=== PATIENT | male | born 1995 | race Caucasian/White ===

== ENCOUNTER 2020-02-27 16:31 | Outpatient (CLI) | payer OTHER ==
--- NOTE | 2020-02-27 17:03 | XRAY Report ---
PROCEDURE: Chest 3 View X-Ray INDICATIONS: CHEST PAIN AYTPICAL TECHNIQUE: 2 view(s) of the chest. COMPARISON: None. FINDINGS: Surgical changes and devices: None. Lungs and pleura: There is a mild left pneumothorax measuring 2.7 cm from the pleural surface. No mid line shift.. Mediastinum: Mediastinal contours are normal. Heart size is normal. Bones and chest wall: No suspicious bony abnormalities. Soft tissues appear unremarkable. IMPRESSION: Mild left pneumothorax without midline shift. Reviewed by: Es Dey MD on 02/27/2020 5:01 PM [facility] Approved by: Es Dey MD on 02/27/2020 5:01 PM [facility] Station ID: [id number]
== END 2020-02-27 16:32 | disposition home or self-care (01) ==
LOC: DI 16:31
PROVIDERS: ATTEND Family Medicine
DX: J93.9 Pneumothorax, unspecified (principal)
CPT/HCPCS: 71047

== ENCOUNTER 2020-02-28 07:36 | Inpatient (IN) | payer OTHER ==
[2020-02-28] MEDS ORDERED: LIDOCAINE 2%-EPI 1:100000 20 ML MDV SUBQ STA (07:54)
[2020-02-28] MEDS ORDERED: MORPHINE 2 MG/ML CARPUJECT IVP STA ×2 (08:20→08:55)
--- NOTE | 2020-02-28 08:23 | ED Physician Documentation ---
History of Present Illness - Stated complaint Stated Complaint: LEFT SIDED PAIN - Chief complaint Chief Complaint: Resp - History obtained from History obtained from: Patient, Family - History of Present Illness Timing: Other (3 months) Pain level max: 5 Pain level now: 4 - Additonal information Additional information: L sided chest pain x 3 months. Noted to have a L sided ptx on cxr last night. worse with movement and breathing. Better with rest. Patient has never had a ptx before. He does smoke cigarettes. Review of Systems Constitutional: denies: Fever, Chills Ears: denies: Ear pain Nose: denies: Rhinorrhea / runny nose, Congestion Throat: denies: Sore throat Respiratory: denies: Cough GI: denies: Nausea, Vomiting, Diarrhea Skin: denies: Rash Musculoskeletal: denies: Neck pain, Back pain Neurologic: denies: Headache PD PAST MEDICAL HISTORY - Past Medical History Past Medical History: No - Past Surgical History Past Surgical History: No - Present Medications Home Medications: Ambulatory Orders Medication Instructions Recorded Confirmed No Known Home Medications 02/28/20 02/28/20 - Allergies Allergies/Adverse Reactions: Allergies Allergy/AdvReac Type Severity Reaction Status Date / Time No Known Drug Allergies Allergy Verified 02/28/20 07:49 - Living Situation Living Situation: reports: With family Living Arrangement: reports: At home - Social History Does the pt smoke?: Yes Smoking Status: Current every day smoker Does the pt drink ETOH?: Yes - Family History Family history: reports: Non contributory PD ED PE NORMAL - Vitals Vital signs reviewed: Yes - General General: Alert and oriented X 3, No acute distress - HEENT HEENT: Moist mucous membranes - Neck Neck: Supple, no meningeal sign - Cardiac Cardiac: RRR - Respiratory Respiratory: No respiratory distress, Other (decreased BS on the L) - Abdomen Abdomen: Soft, Non tender, Non distended - Derm Derm: Warm and dry - Neuro Neuro: Alert and oriented X 3 - Psych Psych: Normal mood, Normal affect Results - Vitals Vitals: Vital Signs - 24 hr 02/28/20 02/28/20 02/28/20 07:46 08:33 09:25 Temperature 36.8 C Heart Rate 54 L 67 66 Respiratory 16 11 L 14 Rate Blood Pressure 114/53 L 120/74 110/68 O2 Saturation 100 98 100 02/28/20 10:00 Temperature Heart Rate 65 Respiratory 12 Rate Blood Pressure 112/69 O2 Saturation 98 Oxygen O2 Source Room air - Labs Labs: Laboratory Tests 02/28/20 02/28/20 08:02 08:02 WBC 5.4 RBC 4.77 Hgb 14.3 Hct 41.2 L MCV 86.4 MCH 30.0 MCHC 34.7 RDW 12.3 Plt Count 238 MPV 9.8 Neut # (Auto) 2.7 Lymph # (Auto) 2.0 [place] # (Auto) 0.5 Eos # (Auto) 0.2 Baso # (Auto) 0.0 Absolute Nucleated RBC 0.00 Nucleated RBC % 0.0 Sodium 139 Potassium 3.9 Chloride 103 Carbon Dioxide 26 Anion Gap 10.0 BUN 10 Creatinine 0.7 Estimated GFR (MDRD) 141 Glucose 95 Calcium 9.6 - Rads (name of study) cxr Radiology: Prelim report reviewed, EMP read contemporaneously, See rad report (L pneumothorax) post chest tube CXR Radiology: Prelim report reviewed, EMP read contemporaneously, See rad report (Status post left apical chest tube placement with near complete resolution of the left apical pneumothorax) Ct chest Radiology: Prelim report reviewed, EMP read contemporaneously, See rad report (Small left pneumothorax. Left pleural catheter in place. No acute airspace disease. ) Procedures - Chest Tube (location) left other other Chest tube preparation: Consent obtained, Time out completed Chest tube location: Left, Mid axillary line Chest tube anesthesia: Lidocaine (2% with epi) Chest tube size: 13 Chest tube return: Air Chest tube after care: Confirmed with xray, Pt tolerated well PD MEDICAL DECISION MAKING - ED course Complexity details: reviewed results, re-evaluated patient, considered differential, d/w patient, d/w family ED course: Anterior chest tube was placed. Patient tolerated well. Connected to suction. Decreased size of pneumothorax. CT of the chest was performed to evaluate for any structural lung disease. Pain well controlled with IV pain medications. Discussed the case with Dr. Bruno, general surgery who will place the patient in observation. This document was made in part using voice recognition software. While efforts are made to proofread this document, sound alike and grammatical errors may occur. Departure - Departure Disposition: ED Place in Observation Clinical Impression: Pneumothorax, left Condition: Stable
[2020-02-28 08:31] LABS: BASOPHILS % (AUTO) 0.6 %; EOSINOPHILS # (AUTO) 0.2 10^3/uL (0.0-0.7); EOSINOPHILS % (AUTO) 3.6 %; HGB - HEMOGLOBIN 14.3 g/dL (14.0-18.0); LYMPHOCYTES % (AUTO) 37.6 %; MEAN CORPUSCULAR HGB CONC 34.7 g/dL (32.0-36.0); MEAN CORPUSCULAR VOLUME 86.4 fL (80.0-94.0); MEAN PLATELET VOLUME 9.8 fL (7.4-11.4); MONOCYTES # (AUTO) 0.5 10^3/uL (0.0-1.0); MONOCYTES % (AUTO) 8.4 %; NEUTROPHILS # (AUTO) 2.7 10^3/uL (1.5-6.6); NEUTROPHILS % (AUTO) 49.6 %; PLT - PLATELET COUNT 238 10^3/uL (130-450); RED BLOOD COUNT 4.77 10^6/uL (4.70-6.10); RED CELL DISTRIBUTION WIDTH 12.3 % (12.0-15.0); WHITE BLOOD COUNT 5.4 x10^3/uL (4.8-10.8)
[2020-02-28 08:39] LABS: CALCIUM 9.6 mg/dL (8.5-10.3); CREATININE 0.7 mg/dL (0.6-1.2)
[2020-02-28] MEDS ORDERED: IOVERSOL 320 100 ML VIAL IVP ONE ×2 (08:56→09:28)
[2020-02-28] MEDS ORDERED: KETOROLAC 30 MG/ML VIAL IVP STA (10:08)
--- NOTE | 2020-02-28 10:09 | CT Report ---
PROCEDURE: CHEST W INDICATIONS: L sided pneumothorax CONTRAST: IV CONTRAST: Optiray 320 ml: 100 PO CONTRAST: *NO PO CONTRAST TECHNIQUE: After the administration of intravenous contrast, 5 mm thick sections acquired from the pulmonary api germain to the posterior costophrenic angles. 7 mm thick coronal MIP reformats were acquired. For radia tion dose reduction, the following was used: automated exposure control, adjustment of mA and/or kV according to patient size. COMPARISON: None. FINDINGS: Image quality: Excellent. Lungs and pleura: Left-sided pleural catheter is visualized and enters the pleural space between the anterior first and second ribs. The distal tip projects posteriorly over the left lung apex. There i s a small left pneumothorax which extends from the apex to the lung base. No acute air space opacitie s. No pleural effusions. Central and peripheral airways are patent and normal in caliber. Mediastinum: Heart size is normal. No pericardial effusion. No mediastinal or hilar adenopathy by size criteria. Thoracic aorta and central pulmonary arteries are normal in size. Esophagus is susan l in caliber. No hiatal hernia. Bones and chest wall: No suspicious bony lesions. No vertebral body compression fractures. No axil dolly or supraclavicular adenopathy by size criteria. Thyroid gland is unremarkable. Abdomen: Visualized upper abdominal solid organs appear normal. Upper abdominal bowel loops are nor mal in caliber. IMPRESSION: Small left pneumothorax. Left pleural catheter in place. No acute airspace disease. Reviewed by: Lonnie Prater MD on 02/28/2020 9:08 AM [facility] Approved by: Lonnie Prater MD on 02/28/2020 9:08 AM [facility] Station ID: [id number]
--- NOTE | 2020-02-28 10:09 | XRAY Report ---
PROCEDURE: Chest 1 View X-Ray INDICATIONS: L sided pneumothorax on cxr yesterday, worse today TECHNIQUE: One view of the chest was acquired. COMPARISON: 2 views of the chest dated 02/27/2020 FINDINGS: Surgical changes and devices: None. Lungs and pleura: Left apical pneumothorax is similar in size to the study dated 02/27/2020. No acute airspace opacities. No pleural effusion. Mediastinum: Mediastinal contours appear normal. Heart size is normal. Bones and chest wall: No suspicious bony lesions. Overlying soft tissues appear unremarkable. IMPRESSION: Stable left apical pneumothorax when compared with the study from 02/27/2020. Reviewed by: Akila Williamson MD on 02/28/2020 10:08 AM [facility] Approved by: Akila Williamson MD on 02/28/2020 10:08 AM [facility] Station ID: [id number]
--- NOTE | 2020-02-28 10:12 | XRAY Report ---
PROCEDURE: Chest 1 View X-Ray INDICATIONS: pneumothorax s/p chest tube TECHNIQUE: One view of the chest was acquired. COMPARISON: Single view the chest dated 02/27/2020 and 02/28/2020. FINDINGS: Surgical changes and devices: None. Lungs and pleura: Patient is status post left apical chest tube placement. There is near complete res olution of the left apical pneumothorax with only a trace pneumothorax noted at the apex. Mediastinum: Mediastinal contours appear normal. Heart size is normal. Bones and chest wall: No suspicious bony lesions. Overlying soft tissues appear unremarkable. IMPRESSION: Status post left apical chest tube placement with near complete resolution of the left apical pneumot horax. Reviewed by: Akila Williamson MD on 02/28/2020 10:11 AM PST Approved by: Akila Williamson MD on 02/28/2020 10:11 AM PST Station ID: [id number]
[2020-02-28] MEDS: ACETAMINOPHEN 325 MG TABLET PO SCH ×2 (11:23→17:33)
[2020-02-28] MEDS: ONDANSETRON 4 MG/2 ML VIAL IVP PRN (11:24)
[2020-02-28] MEDS: oxyCODONE 5 MG TABLET PO PRN (11:24)
[2020-02-28] MEDS: SODIUM CHLORIDE FLUSH 0.9% 10 ML SYRINGE IVP PRN (11:24)
[2020-02-28] MEDS: PANTOPRAZOLE 40 MG TABLET PO SCH (11:24)
--- NOTE | 2020-02-28 13:46 | PHARMACY PROGRESS NOTE ---
- Best Possible Medication History Admit Date and Time: 02/28/20 1012 Processed by: Nursing Medication History completed: Yes As the person ultimately responsible for medication therapy, providers are able to order a medication from an existing home medication list in [facility] via the "Reconcile Routine" prior to Confirmation of that medication by retail support manager. Such practice is discouraged except when the physician, in their clinical judgment, deems that a medical need exists for a medication without regard to previous use.
--- NOTE | 2020-02-28 14:59 | SURGERY HX AND PHYSICAL(T) ---
Surgical History & Physical - Chief Complaint/HPI Chief Complaint: Right chest pain History of Present Illness: L sided chest pain x 3 months. Noted to have a L sided ptx on cxr last night. worse with movement and breathing. Better with rest. Patient has never had a ptx before. He does smoke cigarettes. More uncomfortable over the evening. Presented to the ED and anterior tube placed there. Admitted now for observation and tube management. - PMH/PSH/Social Hx Does the pt have a hx of MRSA?: No Neurological History: Headaches Cardiovascular: None Respiratory: None Skin: None Endocrine/Autoimmune: None Gastrointestinal: None Urinary: None Musculoskeletal: None Blood Disorders: None Psychiatric: Depression Smoking Status: Current every day smoker Does the pt drink ETOH?: Yes - Home Meds and Allergies Home Medications: No Known Home Medications 02/28/20 Allergies/Adverse Reactions: Allergies Allergy/AdvReac Type Severity Reaction Status Date / Time No Known Drug Allergies Allergy Verified 02/28/20 07:49 - Vital Signs Heart Rate: 68 Blood Pressure: 105/69 Temperature: 36.9 C Respiratory Rate: 12 O2 Saturation: 100 Weight (kg): 59.5 kg Height: 1.78 m - Physical Exam General Appearance: positive: No acute distress, Alert Eyes Bilatera: positive: Normal inspection, PERRL, EOMI ENT: positive: ENT inspection nml, Pharynx nml, No signs of dehydration Neck: positive: Nml inspection, No JVD, Trachea midline Respiratory: positive: No respiratory distress, Breath sounds nml, Other (Anterior tube in the left chest to 20 cm negative pressure) Peripheral Pulses: positive: 2+ Abdomen: positive: Non-tender, Nml bowel sounds Neurologic/Psychiatric: positive: Oriented x3 - Patient Review Patient Review: Problems were reviewed with the patient during this visit. Medications were reviewed with the patient during this visit. Allergies were reviewed this patient during this visit. Pertinent Tests Reviewed: All pertitent test for this patient were reviewed. - Assessment & Plan Assessment and Plan: Spontaneous pneumothorax in the setting of a tall skinny and otherwise healthy young man. Dr. Flood is already placed the tube and relieve the immediate p roblem. We will keep him in the hospital for observation and supportive care. Repeat the chest x-ray in the morning and likely remove the tube in the morning. CT scan is reassuring and does not show any extensive bleb disease.
[2020-02-28] MEDS: KETOROLAC 30 MG/ML VIAL IVP SCH (17:33)
[2020-02-28] MEDS: SODIUM CHLORIDE FLUSH 0.9% 10 ML SYRINGE IVP SCH (17:33)
[2020-02-29] MEDS: SODIUM CHLORIDE FLUSH 0.9% 10 ML SYRINGE IVP SCH ×4 (00:18→23:50)
[2020-02-29] MEDS: ACETAMINOPHEN 325 MG TABLET PO SCH ×5 (00:18→23:50)
[2020-02-29] MEDS: KETOROLAC 30 MG/ML VIAL IVP SCH ×5 (00:18→23:50)
[2020-02-29] MEDS: PANTOPRAZOLE 40 MG TABLET PO SCH (07:22)
[2020-02-29] MEDS: ENOXAPARIN 40 MG/0.4 ML SYRINGE SUBQ SCH (09:07)
[2020-02-29] MEDS: SODIUM CHLORIDE FLUSH 0.9% 10 ML SYRINGE IVP PRN ×2 (09:09→11:35)
--- NOTE | 2020-02-29 10:15 | PROVIDER PROGRESS NOTE ---
Subjective - General Admit Date: 02/28/20 Procedure Date: 02/27/20 Post Op Days: 2 Procedure Performed: Anterior chest tube placment - Review of Systems Wound/Incisions: negative: Drainage General: positive: No symptoms HEENT: positive: No symptoms Pulmonary: negative: Shortness of breath, Pleuritic chest pain, Cough, Sputum Cardiovascular: positive: No symptoms. negative: Chest pain Gastrointestinal: positive: No symptoms Genitourinary: positive: No symptoms Musculoskeletal: positive: No symptoms Skin: positive: No symptoms All Other Systems: positive: Reviewed and negative Objective - Patient Data Reviewed Vital Signs: Yes Vital Signs: Vital Signs x48h Temp Pulse Resp BP Pulse Ox 02/29/20 08:00 36.6 C 63 18 108/52 L 100 Weight: Weight 02/27/20 02/28/20 02/29/20 23:59 23:59 23:59 Weight (kg) 59.5 kg Intake & Output: Intake and Output Totals x24h 02/27/20 02/28/20 02/29/20 23:59 23:59 23:59 Intake Total 730 Output Total 200 850 Balance 530 -850 - Lab Results Lab Results: 02/28/20 08:02 02/28/20 08:02 Other Lab Results: Lab Results x24hrs 02/28/20 Range/Units 10:20 SARS-CoV-2 (PCR) NOT DETECTED - Imaging Results Radiology Imaging: positive: Discussed with rads Imaging Results Comments: Large recurrent pneumothorax on the left with tube still in place - Current Medications Current Medications: Current Medications Generic Name Dose Route Start Last Admin Trade Name Freq PRN Reason Stop Dose Admin Acetaminophen 650 mg 02/28/20 12:00 02/29/20 06:42 Tylenol PO 650 mg Q6HR EVELYN Administration Enoxaparin Sodium 40 mg 02/29/20 09:00 02/29/20 09:07 Lovenox SUBQ Not Given DAILY EVELYN Ketorolac Tromethamine 30 mg 02/28/20 17:00 02/29/20 06:43 Toradol Inj (30mg) IVP 03/04/20 09:59 30 mg Q6HR EVELYN Administration Ondansetron HCl 4 mg 02/28/20 10:12 02/28/20 11:24 Zofran Inj IVP 4 mg Q6HR PRN Administration Nausea / Vomiting Oxycodone HCl 5 mg 02/28/20 10:12 02/28/20 11:24 Roxicodone PO 5 mg Q4HR PRN Administration Pain 5 to 7 Pantoprazole Sodium 40 mg 02/28/20 12:00 02/29/20 07:22 Protonix PO 40 mg QDAC EVELYN Administration Sodium Chloride 10 ml 02/28/20 10:12 02/29/20 09:09 Normal Saline Flush 0.9% IVP 10 ml PRN PRN Administration NEEDED PER PROVIDER ORDERS Sodium Chloride 10 ml 02/28/20 17:00 02/29/20 06:43 Normal Saline Flush 0.9% IVP 10 ml 0100,0900,1700 EVELYN Administration - Physical Exam General Appearance: positive: No acute distress Eyes Bilateral: positive: Normal inspection ENT: positive: ENT inspection nml Neck: positive: Nml inspection Respiratory: positive: Other (Chest tube back to suction with evacuation of a large amount of air. Afterward, only intermittent air leak.) Cardiovascular: positive: Regular rate & rhythm, No murmur Abdomen: positive: Non-tender Rectal: positive: Non-tender Skin: positive: Color nml Neurologic/Psychiatric: positive: Oriented x3 ABX Reporting Has patient been on IV antibiotics over the past 48 hours?: No Impression/Plan - Problem List Problem List: 1. Returned chest tube to suction today. 2. We will leave the tube on suction for at least 24 hours or until the intermittent leak stops. 24 hours on water seal to follow that and then finally remove the tube if all goes as planned. 3. As per the above, discharge in 2-3 days if all goes well. Will change to i npatient status.
--- NOTE | 2020-02-29 10:20 | XRAY Report ---
PROCEDURE: Chest 2 View X-Ray INDICATIONS: Pneumothorax TECHNIQUE: 2 view(s) of the chest. COMPARISON: Multiple chest radiographs dated 02/28/[address] chest dated 02/28/2020. FINDINGS: Surgical changes and devices: Stable positioning of left apical chest tube/pleural catheter. Lungs and pleura: There is now a [id number] left pneumothorax which appears larger than the chest radiograph taken prior to placement of chest tube. Likely small left pleural effusion. Right l karen is clear. Mediastinum: Mediastinal contours are normal. Heart size is normal. Bones and chest wall: No suspicious bony abnormalities. Soft tissues appear unremarkable. IMPRESSION: A [id number] left pneumothorax which appears slightly larger than comparison radiograph obt ained prior to placement of left-sided chest tube. Small left pleural effusion. Right lung is clear. Findings were discussed with Dr. Bruno at 10:18 PST. Reviewed by: Lonnie Prater MD on 02/29/2020 9:19 AM [facility] Approved by: Lonnie Prater MD on 02/29/2020 9:19 AM [facility] Station ID: [id number]
[2020-02-29] MEDS: oxyCODONE 5 MG TABLET PO PRN (10:54)
[2020-03-01] MEDS: ACETAMINOPHEN 325 MG TABLET PO SCH ×3 (06:04→18:29)
[2020-03-01] MEDS: PANTOPRAZOLE 40 MG TABLET PO SCH (06:05)
[2020-03-01] MEDS: KETOROLAC 30 MG/ML VIAL IVP SCH ×3 (06:05→18:29)
--- NOTE | 2020-03-01 08:45 | XRAY Report ---
PROCEDURE: Chest 1 View X-Ray INDICATIONS: left spontaneous pneumothorax TECHNIQUE: One view of the chest was acquired. COMPARISON: All recent prior chest plain films and chest CT scanning. FINDINGS: Surgical changes and devices: None. Lungs and pleura: No pleural effusions but the left-sided pneumothorax has redeveloped measuring up to 3.5 cm in thickness, tapering towards the lung base. Lungs are clear. Mediastinum: Mediastinal contours appear normal. Heart size is normal. Bones and chest wall: No suspicious bony lesions. Overlying soft tissues appear unremarkable. IMPRESSION: Recurrent left-sided pneumothorax measuring up to 3.5 cm with pneumothorax evacuation device superimp osed on the left apex. Reviewed by: ePdro Quinteros MD on 03/01/2020 8:44 AM [facility] Approved by: Pedro Quinteros MD on 03/01/2020 8:44 AM [facility] Station ID: [id number]
[2020-03-01] MEDS: ENOXAPARIN 40 MG/0.4 ML SYRINGE SUBQ SCH (09:20)
[2020-03-01] MEDS: SODIUM CHLORIDE FLUSH 0.9% 10 ML SYRINGE IVP SCH ×2 (09:20→18:30)
--- NOTE | 2020-03-01 15:07 | PROVIDER PROGRESS NOTE ---
Subjective - General Admit Date: 02/29/20 Procedure Date: 02/27/20 Post Op Days: 3 Procedure Performed: Anterior chest tube placment - Review of Systems Wound/Incisions: negative: Drainage General: positive: No symptoms HEENT: positive: No symptoms Pulmonary: negative: Shortness of breath, Pleuritic chest pain, Cough, Sputum Cardiovascular: positive: No symptoms. negative: Chest pain Gastrointestinal: positive: No symptoms Genitourinary: positive: No symptoms Musculoskeletal: positive: No symptoms Skin: positive: No symptoms All Other Systems: positive: Reviewed and negative Objective - Patient Data Vital Signs: Vital Signs x48h Temp Pulse Resp BP Pulse Ox 03/01/20 08:05 36.9 C 56 L 16 110/62 100 Weight: Weight 02/28/20 02/29/20 03/01/20 23:59 23:59 23:59 Weight (kg) 59.5 kg Intake & Output: Intake and Output Totals x24h 02/28/20 02/29/20 03/01/20 23:59 23:59 23:59 Intake Total 807 482 1832 Output Total 200 2175 1200 Balance 530 -1195 200 - Lab Results Lab Results: 02/28/20 08:02 02/28/20 08:02 - Current Medications Current Medications: Current Medications Generic Name Dose Route Start Last Admin Trade Name Freq PRN Reason Stop Dose Admin Acetaminophen 650 mg 02/28/20 12:00 03/01/20 12:15 Tylenol PO 650 mg Q6HR EVELYN Administration Enoxaparin Sodium 40 mg 02/29/20 09:00 03/01/20 09:20 Lovenox SUBQ Not Given DAILY EVELYN Ketorolac Tromethamine 30 mg 02/28/20 17:00 03/01/20 12:15 Toradol Inj (30mg) IVP 03/04/20 09:59 30 mg Q6HR EVELYN Administration Ondansetron HCl 4 mg 02/28/20 10:12 02/28/20 11:24 Zofran Inj IVP 4 mg Q6HR PRN Administration Nausea / Vomiting Oxycodone HCl 5 mg 02/28/20 10:12 02/29/20 10:54 Roxicodone PO 5 mg Q4HR PRN Administration Pain 5 to 7 Pantoprazole Sodium 40 mg 02/28/20 12:00 03/01/20 06:05 Protonix PO 40 mg QDAC EVELYN Administration Sodium Chloride 10 ml 02/28/20 10:12 02/29/20 11:35 Normal Saline Flush 0.9% IVP 10 ml PRN PRN Administration NEEDED PER PROVIDER ORDERS Sodium Chloride 10 ml 02/28/20 17:00 03/01/20 09:20 Normal Saline Flush 0.9% IVP 10 ml 0100,0900,1700 EVELYN Administration - Physical Exam General Appearance: positive: No acute distress Eyes Bilateral: positive: Normal inspection ENT: positive: ENT inspection nml Neck: positive: Nml inspection Respiratory: positive: No respiratory distress, Breath sounds nml Cardiovascular: positive: Regular rate & rhythm Comments/Other: Lung fully inflated on this mornings CXR. He still has an air leak with coughing. No chest crepitance Impression/Plan - Problem List Problem List: Left spontaneous pneumothorax. Lung is inflated but with intermittent air leak. Will leave the tube in place and on suction over night. Recheck in the AM for continued intermittent leak.
[2020-03-02] MEDS: KETOROLAC 30 MG/ML VIAL IVP SCH ×5 (00:53→23:53)
[2020-03-02] MEDS: ACETAMINOPHEN 325 MG TABLET PO SCH ×5 (00:53→23:52)
[2020-03-02] MEDS: oxyCODONE 5 MG TABLET PO PRN ×2 (01:16→08:28)
--- NOTE | 2020-03-02 06:05 | PROVIDER PROGRESS NOTE ---
Subjective - Prog Note Date Prog Note Date: 03/02/20 Prog Note Time: 06:03 - Subjective Pt reports feeling: No change Subjective: Pain is under control. Denies any shortness of breath. Anxious to go home Objective - Vital Signs/Intake & Output Reviewed Vital Signs: Yes Vital Signs: Vital Signs x48h Temp Pulse Resp BP Pulse Ox 03/02/20 00:00 36.4 C L 65 16 121/75 100 Intake & Output: Intake & Output 02/28/20 02/29/20 03/01/20 03/02/20 23:59 23:59 23:59 23:59 Intake Total 351 488 5695 Output Total 200 2175 1600 400 Balance 530 -1994 70 -400 - Objective General Appearance: positive: No acute distress Eyes Bilateral: positive: Normal inspection Neck: positive: Nml inspection, Trachea midline Respiratory: positive: No respiratory distress, Breath sounds nml Cardiovascular: positive: Regular rate & rhythm, No murmur Neurologic/Psychiatric: positive: Oriented x3 - Lab Results Fish Bones: 02/28/20 08:02 02/28/20 08:02 - Diagnostic Imaging Diagnostic Imaging Comments: Pending - Other Results/Comments Other Results/Comments: Occasional bubble with deep inspiration and cough. Much improved from yesterday Assessment/Plan - Problem List (1) Pneumothorax, left Impression: Bubbles decreasing but will need to continue on suction another 24 hours. Check CXR this morning to be sure lung remains fully inflated.
[2020-03-02] MEDS: PANTOPRAZOLE 40 MG TABLET PO SCH (06:40)
[2020-03-02] MEDS: SODIUM CHLORIDE FLUSH 0.9% 10 ML SYRINGE IVP SCH ×4 (06:41→23:53)
[2020-03-02] MEDS: ONDANSETRON 4 MG/2 ML VIAL IVP PRN (08:28)
[2020-03-02] MEDS: polyethylene glycoL 3350 17 GM PACKET PO SCH (08:28)
[2020-03-02] MEDS: ENOXAPARIN 40 MG/0.4 ML SYRINGE SUBQ SCH (08:28)
--- NOTE | 2020-03-02 08:32 | XRAY Report ---
PROCEDURE: Chest 1 View X-Ray INDICATIONS: Pneumothorax TECHNIQUE: One view of the chest was acquired. COMPARISON: 03/01/2028 chest radiograph FINDINGS: Surgical changes and devices: Left chest tube and pneumothorax evacuation device are unchanged. Lungs and pleura: Trace left apical pneumothorax measuring only 2 to 3 mm adjacent to the chest tube. Pleural spaces are otherwise clear. The lungs are unremarkable Mediastinum: Mediastinal contours appear normal. Heart size is normal. Bones and chest wall: No suspicious bony lesions. Overlying soft tissues appear unremarkable. IMPRESSION: Trace left apical pneumothorax measuring approximately 3 mm near the chest tube. Reviewed by: Solo Siegel MD on 03/02/2020 8:31 AM PST Approved by: Solo Siegel MD on 03/02/2020 8:31 AM PST Station ID: [id number]
[2020-03-02] MEDS: NICOTINE 14 MG PATCH TOP SCH (10:26)
[2020-03-02] MEDS: SODIUM CHLORIDE FLUSH 0.9% 10 ML SYRINGE IVP PRN (11:57)
[2020-03-03] MEDS: ACETAMINOPHEN 325 MG TABLET PO SCH ×3 (05:48→18:53)
[2020-03-03] MEDS: SODIUM CHLORIDE FLUSH 0.9% 10 ML SYRINGE IVP SCH ×3 (05:48→15:49)
[2020-03-03] MEDS: KETOROLAC 30 MG/ML VIAL IVP SCH ×3 (05:50→18:54)
[2020-03-03] MEDS: PANTOPRAZOLE 40 MG TABLET PO SCH (05:50)
[2020-03-03] MEDS: DOCUSATE SODIUM 250 MG CAPSULE PO SCH (08:49)
[2020-03-03] MEDS: NICOTINE 14 MG PATCH TOP SCH (08:49)
[2020-03-03] MEDS: SENNA 8.6 MG TABLET PO SCH (08:52)
[2020-03-03] MEDS: polyethylene glycoL 3350 17 GM PACKET PO SCH ×2 (08:52→11:23)
[2020-03-03] MEDS: ENOXAPARIN 40 MG/0.4 ML SYRINGE SUBQ SCH (08:52)
[2020-03-03] MEDS ORDERED: ZINC OXIDE 20% OINT 30 GM TUBE TOP PRN (09:28)
[2020-03-03] MEDS ORDERED: MIN OIL/DIMETHICON/COCONUT OIL 92 GM TUBE TOP PRN (09:28)
[2020-03-03] MEDS ORDERED: GLYCERIN ADULT SUPP PR ONE (09:28)
[2020-03-03] MEDS: oxyCODONE 5 MG TABLET PO PRN ×2 (11:25→22:33)
[2020-03-03] MEDS: LORazepam 2 MG/ML VIAL IVP PRN (15:48)
[2020-03-03] MEDS ORDERED: LIDOCAINE 1%-EPI 1:100000 20 ML MDV ONE (16:12)
[2020-03-03] MEDS: HYDROmorphone 0.5 MG/0.5 ML SYRINGE IVP PRN (16:32)
--- NOTE | 2020-03-03 16:58 | XRAY Report ---
PROCEDURE: Chest 1 View X-Ray INDICATIONS: Recurrent left pneumothorax TECHNIQUE: One view of the chest was acquired. COMPARISON: Chest x-ray 03/03/2020 FINDINGS: Surgical changes and devices: Interval placement of left-sided chest tube. Lungs and pleura: Minimal residual apical left pneumothorax. Mediastinum: Mediastinal contours appear normal. Heart size is normal. Bones and chest wall: No suspicious bony lesions. Overlying soft tissues appear unremarkable. IMPRESSION: Interval chest tube placement with minimal residual apical left pneumothorax. Reviewed by: Es Dey MD on 03/03/2020 4:57 PM PST Approved by: Es Dye MD on 03/03/2020 4:57 PM PST Station ID: [id number]
[2020-03-03] MEDS ORDERED: BISACODYL 10 MG SUPP PR SCH (17:00)
--- NOTE | 2020-03-03 17:03 | PROVIDER PROGRESS NOTE ---
Subjective - General Admit Date: 02/29/20 Procedure Date: 02/27/20 Post Op Days: 5 Procedure Performed: Anterior chest tube placment - Review of Systems Wound/Incisions: positive: Other (Large air leak with each deep breath). negative: Drainage General: positive: No symptoms HEENT: positive: No symptoms Pulmonary: negative: Shortness of breath, Pleuritic chest pain, Cough, Sputum Cardiovascular: positive: No symptoms. negative: Chest pain Gastrointestinal: positive: No symptoms Genitourinary: positive: No symptoms Musculoskeletal: positive: No symptoms Skin: positive: No symptoms All Other Systems: positive: Reviewed and negative - Other Other Information/Narrative: W attempted to place the tube to water seal. Within 30 minutes Terry reports chest pain and shortness of breath. The tube was placed back to suction with resolution of symptoms. CXR while the tube was on water seal reveals a large recurrent pneumothorax. Terry is also complaining of constipation Objective - Patient Data Vital Signs: Vital Signs x48h Temp Pulse Resp BP Pulse Ox 03/03/20 16:53 36.3 C L 74 16 116/57 L 97 03/03/20 16:00 36.4 C L 60 16 105/55 L 98 03/03/20 11:12 36.8 C 94 19 134/74 H 100 Intake & Output: Intake and Output Totals x24h 03/01/20 03/02/20 03/03/20 23:59 23:59 23:59 Intake Total 1670 1520 Output Total 1600 2812 975 Balance 70 -1292 -975 - Lab Results Lab Results: 02/28/20 08:02 02/28/20 08:02 - Current Medications Current Medications: Current Medications Generic Name Dose Route Start Last Admin Trade Name Darinq PRN Reason Stop Dose Admin Acetaminophen 650 mg 02/28/20 12:00 03/03/20 11:24 Tylenol PO 650 mg Q6HR EVELYN Administration Docusate Sodium 250 - 500 mg 03/03/20 09:00 03/03/20 08:49 Colace 250mg Capsule PO 250 mg DAILY EVELYN Administration Enoxaparin Sodium 40 mg 02/29/20 09:00 03/03/20 08:52 Lovenox SUBQ Not Given DAILY EVELYN Hydromorphone HCl 0.5 mg 02/28/20 10:22 03/03/20 16:32 Dilaudid Inj Syringe IVP 0.5 mg Q30M PRN Administration Breakthrough Pain Ketorolac Tromethamine 30 mg 02/28/20 17:00 03/03/20 11:32 Toradol Inj (30mg) IVP 03/04/20 09:59 30 mg Q6HR EVELYN Administration Lorazepam 0.5 mg 03/03/20 12:16 03/03/20 15:48 Ativan Inj (Vial) IVP 0.5 mg Q2H PRN Administration Anxiety Nicotine 1 patch 03/02/20 10:00 03/03/20 08:49 Nicoderm TOP 1 patch DAILY EVELYN Administration Ondansetron HCl 4 mg 02/28/20 10:12 03/02/20 08:28 Zofran Inj IVP 4 mg Q6HR PRN Administration Nausea / Vomiting Oxycodone HCl 5 mg 02/28/20 10:12 03/03/20 11:25 Roxicodone PO 5 mg Q4HR PRN Administration Pain 5 to 7 Pantoprazole Sodium 40 mg 02/28/20 12:00 03/03/20 05:50 Protonix PO 40 mg QDAC EVELYN Administration Polyethylene Glycol 17 gm 03/02/20 09:00 03/03/20 11:23 Miralax PO 17 gm DAILY EVELYN Administration Senna 8.6 - 17.2 mg 03/03/20 09:00 03/03/20 08:52 Senokot PO Not Given DAILY EVELYN Sodium Chloride 10 ml 02/28/20 10:12 03/02/20 11:57 Normal Saline Flush 0.9% IVP 10 ml PRN PRN Administration NEEDED PER PROVIDER ORDERS Sodium Chloride 10 ml 02/28/20 17:00 03/03/20 15:49 Normal Saline Flush 0.9% IVP 10 ml 0100,0900,1700 EVELYN Administration - Physical Exam Comments/Other: See above Impression/Plan - Problem List Problem List: Recurrent pneumothorax. I spoke with Dr. Syeda Willis per telephone. I believe we need to remove the anterior tube and place a small lateral tube. This may allow the defect to seal. If this fails, we'll consider transfer for thoracoscopy. I discussed all of this with Terry and though he if very anxious about the process, he has expressed an understanding and a willingness to have the tube replaced.
[2020-03-03] MEDS: ONDANSETRON 4 MG/2 ML VIAL IVP PRN (17:13)
--- NOTE | 2020-03-03 17:20 | XRAY Report ---
PROCEDURE: Chest 2 View X-Ray INDICATIONS: left spontaneous pneumothorax TECHNIQUE: 2 view(s) of the chest. COMPARISON: None. FINDINGS: Surgical changes and devices: Percutaneous pneumothorax evacuation device present over the left apex. Lungs and pleura: No pleural effusions but the left-sided pneumothorax now measures 2.9 cm at the ap ex, 2.5 cm at the upper outer left upper lobe and tapers to 1.3 cm overlying the lower scapula area. Lungs are clear. Mediastinum: Mediastinal contours are normal. Heart size is normal. Bones and chest wall: No suspicious bony abnormalities. Soft tissues appear unremarkable. IMPRESSION: Recurrent/residual pneumothorax on the left measuring up to 2.9 cm AP at the apex and ta pering more inferiorly to 1.3 cm. Pleur-evac remains in normal position. Reviewed by: Pedro Quinteros MD on 03/03/2020 5:18 PM [facility] Approved by: Pedro Quinteros MD on 03/03/2020 5:18 PM [facility] Station ID: [id number]
--- NOTE | 2020-03-03 17:21 | POST OP PROGRESS NOTE ---
Subjective - General Admit Date: 02/29/20 Procedure Date: 02/27/20 Post Op Days: 5 Procedure Performed: Anterior chest tube placment - Review of Systems Wound/Incisions: positive: Other (Large air leak with each deep breath). negative: Drainage General: positive: No symptoms HEENT: positive: No symptoms Pulmonary: negative: Shortness of breath, Pleuritic chest pain, Cough, Sputum Cardiovascular: positive: No symptoms. negative: Chest pain Gastrointestinal: positive: No symptoms Genitourinary: positive: No symptoms Musculoskeletal: positive: No symptoms Skin: positive: No symptoms All Other Systems: positive: Reviewed and negative - Other Other Information/Narrative: After obtaining informed consent, the patient was placed in the sitting position in his bed. The left chest was prepped and draped in the standard surgical fashion. 10 cc of 1% lidocaine with epinephrine was used to anesthetize the lateral chest wall at approximately the seventh rib. A small michele was created in the skin and then a 13 [place] chest tube placed through this opening and into the chest.The tube was held into place with tape and dressed appropriately. The existing chest tube anteriorly was removed and a dressing applied to the wound. Patient tolerated the procedure very well. Postop chest x-ray showed the lung to be fully inflated.
[2020-03-04] MEDS: ACETAMINOPHEN 325 MG TABLET PO SCH ×5 (00:07→23:52)
[2020-03-04] MEDS: SODIUM CHLORIDE FLUSH 0.9% 10 ML SYRINGE IVP SCH ×3 (00:07→05:47)
[2020-03-04] MEDS: KETOROLAC 30 MG/ML VIAL IVP SCH ×2 (00:07→05:46)
[2020-03-04] MEDS: LORazepam 2 MG/ML VIAL IVP PRN (00:32)
[2020-03-04] MEDS: PANTOPRAZOLE 40 MG TABLET PO SCH (05:47)
[2020-03-04] MEDS: LACTULOSE 10 GM /15 ML UDC PO SCH (09:09)
[2020-03-04] MEDS: ENOXAPARIN 40 MG/0.4 ML SYRINGE SUBQ SCH (09:09)
[2020-03-04] MEDS: NICOTINE 14 MG PATCH TOP SCH (09:47)
[2020-03-04] MEDS: DOCUSATE SODIUM 250 MG CAPSULE PO SCH (09:47)
[2020-03-04] MEDS: polyethylene glycoL 3350 17 GM PACKET PO SCH (09:48)
[2020-03-04] MEDS: SENNA 8.6 MG TABLET PO SCH (09:48)
[2020-03-04] MEDS: oxyCODONE 5 MG TABLET PO PRN (09:48)
[2020-03-04] MEDS: ONDANSETRON 4 MG/2 ML VIAL IVP PRN (09:53)
--- NOTE | 2020-03-04 12:05 | XRAY Report ---
PROCEDURE: Chest 1 View X-Ray INDICATIONS: Recurrent left pneumothorax TECHNIQUE: One view of the chest was acquired. COMPARISON: 03/03/2020 FINDINGS: Surgical changes and devices: Left-sided chest tube is again seen.. Lungs and pleura: There is no focal infiltrate or pleural effusion. Tiny residual left apical pneumot horax is again seen and not significantly changed in size from previous day. Mediastinum: Mediastinal contours appear normal. Heart size is normal. Bones and chest wall: No suspicious bony lesions. Overlying soft tissues appear unremarkable. IMPRESSION: Stable appearing tiny residual left apical pneumothorax. Reviewed by: Benja Ramírez MD on 03/04/2020 11:03 AM [facility] Approved by: Benja Ramírez MD on 03/04/2020 11:03 AM [facility] Station ID: [id number]
--- NOTE | 2020-03-04 16:14 | PROVIDER PROGRESS NOTE ---
Subjective - General Admit Date: 02/29/20 Procedure Date: 02/27/20 Post Op Days: 6 Procedure Performed: Anterior chest tube placment - Review of Systems Wound/Incisions: positive: Other (Large air leak with each deep breath). negative: Drainage General: positive: No symptoms HEENT: positive: No symptoms Pulmonary: negative: Shortness of breath, Pleuritic chest pain, Cough, Sputum Cardiovascular: positive: No symptoms. negative: Chest pain Gastrointestinal: positive: No symptoms Genitourinary: positive: No symptoms Musculoskeletal: positive: No symptoms Skin: positive: No symptoms All Other Systems: positive: Reviewed and negative - Other Other Information/Narrative: Post op day 1 after lateral chest tube placement and removal of the anterior tube. The tube developed a leak in the connection last evening. Replaced connectors and tubing and able to fix the leak. In the sitting or supine position, there is no air leak. Intermittent leak especially when lying on the right side. No pain as long as the chest tube is on suction. Objective - Patient Data Vital Signs: Vital Signs x48h Temp Pulse Resp BP Pulse Ox 03/04/20 15:56 37.0 C 66 16 120/63 99 03/04/20 13:38 37.1 C 65 16 115/67 99 Intake & Output: Intake and Output Totals x24h 03/02/20 03/03/20 03/04/20 23:59 23:59 23:59 Intake Total 1520 310 420 Output Total 2812 975 20 Balance -1292 -665 400 - Lab Results Lab Results: 02/28/20 08:02 02/28/20 08:02 - Current Medications Current Medications: Current Medications Generic Name Dose Route Start Last Admin Trade Name Darinq PRN Reason Stop Dose Admin Acetaminophen 650 mg 02/28/20 12:00 03/04/20 13:27 Tylenol PO 650 mg Q6HR EVELYN Administration Docusate Sodium 250 - 500 mg 03/03/20 09:00 03/04/20 09:47 Colace 250mg Capsule PO 500 mg DAILY EVELYN Administration Enoxaparin Sodium 40 mg 02/29/20 09:00 03/04/20 09:09 Lovenox SUBQ Not Given DAILY EVELYN Hydromorphone HCl 0.5 mg 02/28/20 10:22 03/03/20 16:32 Dilaudid Inj Syringe IVP 0.5 mg Q30M PRN Administration Breakthrough Pain Lactulose 10 gm 03/04/20 09:00 03/04/20 09:09 Enulose PO Not Given DAILY EVELYN Lorazepam 0.5 mg 03/03/20 12:16 03/04/20 00:32 Ativan Inj (Vial) IVP 0.5 mg Q2H PRN Administration Anxiety Nicotine 1 patch 03/02/20 10:00 03/04/20 09:47 Nicoderm TOP 1 patch DAILY EVELYN Administration Ondansetron HCl 4 mg 02/28/20 10:12 03/04/20 09:53 Zofran Inj IVP 4 mg Q6HR PRN Administration Nausea / Vomiting Oxycodone HCl 5 mg 02/28/20 10:12 03/04/20 09:48 Roxicodone PO 5 mg Q4HR PRN Administration Pain 5 to 7 Pantoprazole Sodium 40 mg 02/28/20 12:00 03/04/20 05:47 Protonix PO 40 mg QDAC EVELYN Administration Polyethylene Glycol 17 gm 03/02/20 09:00 03/04/20 09:48 Miralax PO 17 gm DAILY EVELYN Administration Senna 8.6 - 17.2 mg 03/03/20 09:00 03/04/20 09:48 Senokot PO 8.6 mg DAILY EVELYN Administration Sodium Chloride 10 ml 02/28/20 10:12 03/02/20 11:57 Normal Saline Flush 0.9% IVP 10 ml PRN PRN Administration NEEDED PER PROVIDER ORDERS Sodium Chloride 10 ml 02/28/20 17:00 03/04/20 05:47 Normal Saline Flush 0.9% IVP 10 ml 0100,0900,1700 EVELYN Administration ABX Reporting Has patient been on IV antibiotics over the past 48 hours?: No Impression/Plan - Problem List Problem List: Intermittent air leak after spontaneous pneumothorax. Spoke with Dr. Willis yesterday and replaced anterior tube with lateral tube. Will give it over night to seal. Will need to discuss again or even consider transfer if it continues to leak. May need thoracoscopy.
[2020-03-05] MEDS: HYDROmorphone 0.5 MG/0.5 ML SYRINGE IVP PRN ×2 (01:43→02:50)
[2020-03-05] MEDS: LORazepam 2 MG/ML VIAL IVP PRN (02:50)
[2020-03-05] MEDS: oxyCODONE 5 MG TABLET PO PRN ×2 (02:50→13:09)
[2020-03-05] MEDS: PANTOPRAZOLE 40 MG TABLET PO SCH (05:50)
[2020-03-05] MEDS: ACETAMINOPHEN 325 MG TABLET PO SCH ×2 (05:50→12:10)
[2020-03-05] MEDS: ENOXAPARIN 40 MG/0.4 ML SYRINGE SUBQ SCH (09:30)
[2020-03-05] MEDS: polyethylene glycoL 3350 17 GM PACKET PO SCH (09:30)
[2020-03-05] MEDS: DOCUSATE SODIUM 250 MG CAPSULE PO SCH (09:30)
[2020-03-05] MEDS: SENNA 8.6 MG TABLET PO SCH (09:30)
[2020-03-05] MEDS: LACTULOSE 10 GM /15 ML UDC PO SCH (09:30)
[2020-03-05] MEDS: SODIUM CHLORIDE FLUSH 0.9% 10 ML SYRINGE IVP SCH (10:46)
[2020-03-05] MEDS: NICOTINE 14 MG PATCH TOP SCH (10:46)
--- NOTE | 2020-03-05 12:18 | Discharge Plan ---
Discharge Plan Problem Reviewed?: Yes Disposition: 02 Transfer Acute Care Hosp Condition: Good Diet: Regular Activity Restrictions: chest tube present Shower Restrictions: Yes Driving Restrictions: Yes Instruction Topics: Pneumothorax No Smoking: If you smoke, Please STOP! Call for help. Follow-up with: Andrew Hagen MD [Primary Care Provider] -
[2020-03-05 12:30] VITALS: BP 133/65
--- NOTE | 2020-03-05 12:36 | DISCHARGE SUMMARY ---
"Discharge Summary Admit Date: 02/28/20 Discharge Date: 03/05/20 Discharging Provider: Davida Perales MD Code Status: Attempt Resuscitation Discharge Facility Name: [facility] - DIAGNOSES Admission Diagnoses: Left pneumothorax Discharge Diagnoses with Status of Each Condition: Persistent left airleak Good stable condition with chest tube present - HPI History of Present Illness: Presented 02/28/2020 to the ED. Left pneumothorax identified and chest tube placed. Lateral chest tube later placed. Persistent air leak present. Plan transfer the thoracic surgery [facility] Dr Pedrito Goff - CONSULTS | PROCEDURES Procedures: left chest tube - HOSPITAL COURSE Hospital Course: As above. Left chest tubes placed for spontaneous pneumothorax. Persistent air leak for 6 days - ALLERGIES Allergies/Adverse Reactions: Allergies Allergy/AdvReac Type Severity Reaction Status Date / Time No Known Drug Allergies Allergy Verified 02/28/20 07:49 - MEDICATIONS Home Medications: Ambulatory Orders Medication Instructions Recorded Confirmed No Known Home Medications 02/28/20 02/28/20 - LABS Result Diagrams: 02/28/20 08:02 02/28/20 08:02"
== END 2020-03-05 16:25 | disposition short-term general hospital (02) | DRG 201 ==
LOC: ED 07:36 → MS2 10:12 → OBSVTOIN 02-29 10:20
PROVIDERS: ADMIT Surgery; ATTEND Family Medicine
PROC: 0W9B30Z Drainage of Left Pleural Cavity with Drainage Device, Percutaneous Approach (ICD-10-PCS; principal; 2020-03-03)
DX: J93.11 Primary spontaneous pneumothorax (principal); F17.210 Nicotine dependence, cigarettes, uncomplicated
CPT/HCPCS: 32551; 36415; 71045; 71046; 71260; 80048; 85025; 87635; 96372; 96374; 96375; 96376; 99284; 99285; A9270; G0378; J1170; J2060; Q9967

== ENCOUNTER 2023-03-07 08:30 | Outpatient (CLI) | payer OTHER ==
[2023-03-07 11:45] LABS: BASOPHILS % (AUTO) 0.5 %; EOSINOPHILS % (AUTO) 0.3 %; HCT - HEMATOCRIT 41.6 % (42.0-52.0); HGB - HEMOGLOBIN 14.1 g/dL (14.0-18.0); LYMPHOCYTES # (AUTO) 1.2 10^3/uL (1.5-3.5); LYMPHOCYTES % (AUTO) 18.6 %; MEAN CORPUSCULAR HEMOGLOBIN 29.8 pg (27.0-31.0); MEAN CORPUSCULAR HGB CONC 33.9 g/dL (32.0-36.0); MEAN CORPUSCULAR VOLUME 87.9 fL (80.0-94.0); MEAN PLATELET VOLUME 9.6 fL (7.4-11.4); MONOCYTES # (AUTO) 0.7 10^3/uL (0.0-1.0); MONOCYTES % (AUTO) 10.2 %; NEUTROPHILS # (AUTO) 4.6 10^3/uL (1.5-6.6); NEUTROPHILS % (AUTO) 70.1 %; PLT - PLATELET COUNT 314 10^3/uL (130-450); RED BLOOD COUNT 4.73 10^6/uL (4.70-6.10); RED CELL DISTRIBUTION WIDTH 12.4 % (12.0-15.0); WHITE BLOOD COUNT 6.6 x10^3/uL (4.8-10.8)
[2023-03-07 12:14] LABS: THYROID STIMULATING HORMONE 0.37 uIU/mL (0.34-5.60)
[2023-03-07 12:15] LABS: ALBUMIN 5.5 g/dL (3.2-5.5); ALBUMIN/GLOBULIN RATIO 2.8 (1.0-2.2); BILIRUBIN,TOTAL 0.7 mg/dL (0.2-1.0); CALCIUM 10.1 mg/dL (8.5-10.3); CREATININE 0.6 mg/dL (0.6-1.3); POTASSIUM 4.2 mmol/L (3.5-4.5); TOTAL PROTEIN 7.5 g/dL (6.4-8.9)
== END 2023-03-07 08:45 | disposition home or self-care (01) ==
LOC: LAB.N 08:30
PROVIDERS: ATTEND Family Medicine
DX: J06.9 Acute upper respiratory infection, unspecified (principal); R68.83 Chills (without fever)
CPT/HCPCS: 36415; 80053; 84443; 85025; 85651

== ENCOUNTER 2023-03-09 10:57 | Outpatient (CLI) | payer OTHER ==
--- NOTE | 2023-03-09 16:36 | XRAY Report ---
PROCEDURE: Chest 2 View X-Ray INDICATIONS: CHILLS, URI TECHNIQUE: 2 views of the chest were acquired. COMPARISON: 03/04/2020 FINDINGS: Surgical changes and devices: None. Lungs and pleura: No pleural effusions or pneumothorax. Lungs are clear. Mediastinum: Mediastinal contours appear normal. Heart size is normal. Bones and chest wall: No suspicious bony lesions. Overlying soft tissues appear unremarkable. IMPRESSION: No acute process. Reviewed by: Dolly Hilton MD on 03/09/2023 4:35 PM PST Approved by: Dolly Hilton MD on 03/09/2023 4:35 PM [facility] Station ID: [id number]
== END 2023-03-09 10:58 | disposition home or self-care (01) ==
LOC: DI 10:57
PROVIDERS: ATTEND Family Medicine
DX: R68.83 Chills (without fever) (principal); J06.9 Acute upper respiratory infection, unspecified